=== PATIENT | female | born 1980 | race Caucasian/White ===

== ENCOUNTER 2019-01-07 15:01 | Emergency (ER) | payer OTHER ==
[~2019-01-07] VITALS: Ht 160 cm; Wt 56.2 kg
[2019-01-07] MEDS ORDERED: COZAAR100 MG (15:17)
[2019-01-07] MEDS ORDERED: PROZAC20 MG (15:17)
[2019-01-07] MEDS ORDERED: ADDERALL XR 3030 MG (15:17)
== END 2019-01-07 18:21 | disposition home or self-care (01) ==
LOC: ER 15:01
DX: L60.0 Ingrowing nail (principal); L03.012 Cellulitis of left finger

== ENCOUNTER 2024-06-12 13:30 | Outpatient (CLI) | payer OTHER ==
[~2024-06-12 13:30] MED LIST: ADDERALL XR 3030 MG; COZAAR100 MG; PROZAC20 MG
== END 2024-06-12 13:41 | disposition home or self-care (01) ==
LOC: MAMO-SONO 13:30
PROVIDERS: ATTEND Obstetrics & Gynecology
DX: N60.11 Diffuse cystic mastopathy of right breast (principal); N60.12 Diffuse cystic mastopathy of left breast